=== PATIENT | male | born 1970 | race Two or more races ===

== ENCOUNTER 2019-01-28 18:06 | Emergency (ER) | payer MEDICAID ==
[~2019-01-28] VITALS: Ht 167.6 cm; Wt 65.8 kg
--- NOTE | 2019-01-28 18:22 | NUR ---
PT BIB SELF C/O EPIGASTRIC PAIN,NAUSEA AND VOMITING UPON WAKING UP THIS MORNING AFTER DRINKING ALCOHOL YESTERDAY, PT IS AAOX4, NOT IN RSEPIRATORY DISTRESS, V/S STABLE, KEPT RESTED AND COMFORTABLE, WILL CONTINUE TO MONITOR.
--- NOTE | 2019-01-28 19:15 | NUR ---
SEEN AND EXAMINED BY DR. SEXTON.
[2019-01-28 19:25] LABS: BASOPHILS # (AUTO) 0.1 /CMM (0.0-0.2); BASOPHILS % (AUTO) 1.5 % (0.0-2.0); EOSINOPHILS % (AUTO) 0.4 % (0.0-6.0); HEMATOCRIT 24 % (39-51); LYMPHOCYTES # (AUTO) 1.3 /CMM (0.8-4.8); LYMPHOCYTES % (AUTO) 17.6 % (20.0-44.0); MEAN CORPUSCULAR HGB CONC 30 g/dl (31.0-36.0); MEAN CORPUSCULAR VOLUME 60 fL (80-96); MONOCYTES # (AUTO) 0.5 /CMM (0.1-1.30); MONOCYTES % (AUTO) 6.1 % (2.0-12.0); NEUTROPHILS # (AUTO) 5.6 /CMM (1.8-8.9); NEUTROPHILS % (AUTO) 74.4 % (43.0-81.0); PLATELET COUNT (AUTO) 290 /CMM (150-450); RED BLOOD CELL COUNT(AUTO) 3.89 MIL/uL (4.5-6.0); WHITE BLOOD COUNT (AUTO) 7.5 K/uL (4.3-11.0)
[2019-01-28] MEDS ORDERED: LIDOCAINE VISCOUS 2% UD 15 ML UDC ONE (19:25)
[2019-01-28] MEDS ORDERED: FAMOTIDINE/PF INJ 20 MG/2 ML VIAL IV ONE ×2 (19:25→19:30)
[2019-01-28] MEDS ORDERED: MAG HYDROX/AL HYDROX/SIMETH 30 ML UDC ONE (19:25)
[2019-01-28] MEDS ORDERED: MAG HYDROX/AL HYDROX/SIMETH 30 ML UDC PO ONE (19:30)
[2019-01-28] MEDS ORDERED: IV NS 0.9% 1,000 ML BAG IV ONE (19:30)
[2019-01-28] MEDS ORDERED: LIDOCAINE VISCOUS 2% UD 15 ML UDC MM ONE (19:30)
--- NOTE | 2019-01-28 19:30 | NUR ---
IV LINE ESTABLISHED, BLOOD DRAWNED AND SENT TO LAB.
--- NOTE | 2019-01-28 19:50 | NUR ---
OCCULT BLOOD TEST DONE BY DR. SEXTON.
[2019-01-28 19:55] LABS: ALBUMIN 3.6 g/dL (3.4-5.0); BILIRUBIN,DIRECT 0.1 mg/dL (0.0-0.2); BILIRUBIN,TOTAL 0.5 mg/dL (0.2-1.0); CALCIUM, SERUM 8.1 mg/dL (8.5-10.1); CREATININE 0.8 mg/dL (0.6-1.3); POTASSIUM 3.9 mmol/L (3.5-5.1); TOTAL PROTEIN, SERUM 7.1 g/dL (6.4-8.2)
[2019-01-28] MEDS ORDERED: SUCRALFATE 1 G/10 ML UDC PO ONE (20:00)
[2019-01-28 20:02] LABS: OCCULT BLOOD STOOL NEGATIVE (NEGATIVE)
[2019-01-28 21:05] VITALS: BP 118/82
--- NOTE | 2019-01-28 21:05 | NUR ---
IV removed. Catheter intact and site benign. Pressure and 4x4 applied to site. No bleeding noted. Patient discharged to home in stable condition. Written and verbal after care instructions given. Patient verbalizes understanding of instruction.
[2019-01-28 21:42] LABS: LYMPHOCYTES % (MANUAL) 19 % (16-48); MONOCYTES % (MANUAL) 4 % (0-11.0); NEUTROPHILS % (MANUAL) 77 (42-76)
== END 2019-01-28 21:06 | disposition home or self-care (01) ==
LOC: ER 18:12
DX: K29.70 Gastritis, unspecified, without bleeding (principal); D64.9 Anemia, unspecified; R11.2 Nausea with vomiting, unspecified; F10.10 Alcohol abuse, uncomplicated; F17.200 Nicotine dependence, unspecified, uncomplicated; Y90.9 Presence of alcohol in blood, level not specified
CPT/HCPCS: 36415; 80048; 80076; 82272; 83690; 85025; 96361; 96374; 99283; 99406; J3490; J7030